=== PATIENT | female | born 1985 | race Caucasian/White ===

== ENCOUNTER 2019-05-26 18:41 | Emergency (ER) | payer MEDICAID ==
[~2019-05-26] VITALS: Ht 160 cm; Wt 65.5 kg
[2019-05-26 18:45] VITALS: Ht 160 cm; Wt 65.5 kg
[2019-05-26] MEDS ORDERED: BUSPAR5 MG PO (18:47)
[2019-05-26 19:20] LABS: APPEARANCE CLEAR (CLEAR); BILIRUBIN NEGATIVE (NEGATIVE); COLOR YELLOW (YELLOW); GLUCOSE NEGATIVE (NEGATIVE); KETONE MODERATE mg/dL (NEGATIVE); NITRITE NEGATIVE (NEGATIVE); PROTEIN NEGATIVE (NEGATIVE); UROBILINOGEN NORMAL (NORMAL)
[2019-05-26 19:21] LABS: BACTERIA MODERATE /hpf (NONE SEEN); EPITHELIAL CELLS 0-5 /hpf (0-5); RED CELLS - URINE OCC /hpf (0-5)
[2019-05-26] MEDS ORDERED: MACROBID100 MG PO (20:20)
[2019-05-26] MEDS ORDERED: ZOFRAN4 MG PO (20:20)
[2019-05-26 20:59] VITALS: BP 105/55
== END 2019-05-26 21:00 | disposition home or self-care (01) ==
LOC: D.ER 18:41
PROVIDERS: Family Medicine
DX: N39.0 Urinary tract infection, site not specified (principal); R11.0 Nausea

== ENCOUNTER 2019-06-29 18:05 | Emergency (ER) | payer MEDICAID ==
[~2019-06-29] VITALS: Ht 160 cm; Wt 65.9 kg
[~2019-06-29 18:05] MED LIST: BUSPAR5 MG PO; MACROBID100 MG PO; ZOFRAN4 MG PO
[2019-06-29 18:14] VITALS: Ht 160 cm; Wt 65.9 kg
[2019-06-29 18:58] LABS: BASOPHILS 0.3 % (0-2); EOSINOPHILS 0.8 % (0-7); HEMATOCRIT 39.6 % (36.0-48.0); HEMOGLOBIN 13.6 g/dL (12-16); IMMATURE GRANULOCYTES 0.2 % (0-5); LYMPHOCYTES 32.8 % (15-50); MCH 30.5 pg (26.0-34.0); MCHC 34.3 g/dL (31.0-37.0); MCV 88.8 fL (80.0-100.0); MONOCYTES 6.1 % (2-11); NEUTROPHILS 59.8 % (40-80); PLATELET COUNT 201 10x3/uL (130-400); RBC 4.46 10x6/uL (4.00-5.40); WBC 5.9 10x3/uL (4.8-10.8)
[2019-06-29 19:03] LABS: APPEARANCE CLEAR (CLEAR); BILIRUBIN NEGATIVE (NEGATIVE); COLOR YELLOW (YELLOW); GLUCOSE NEGATIVE (NEGATIVE); KETONE NEGATIVE (NEGATIVE); NITRITE NEGATIVE (NEGATIVE); PROTEIN NEGATIVE (NEGATIVE); SPECIFIC GRAVITY 1.025 (1.005-1.020); UROBILINOGEN NORMAL (NORMAL)
[2019-06-29 19:13] LABS: ALBUMIN 4.2 g/dL (3.4-5.0); ANION GAP 11.9 mmol/L (8-16); BILIRUBIN - TOTAL 0.66 mg/dL (0.2-1.3); CALCIUM 8.7 mg/dL (8.5-10.1); CARBON DIOXIDE 29.6 mmol/L (21.0-32.0); POTASSIUM - SERUM 3.5 mmol/L (3.5-5.1); PROTEIN - SERUM 7.4 g/dL (6.4-8.2)
[2019-06-29] MEDS ORDERED: ULTRAM50 MG PO (20:27)
[2019-06-29 21:15] VITALS: BP 119/76
== END 2019-06-29 21:12 | disposition home or self-care (01) ==
LOC: D.ER 18:05
PROVIDERS: Family Medicine
DX: R10.9 Unspecified abdominal pain (principal)

== ENCOUNTER → 2019-07-02 14:31 | Outpatient (CLI) | payer MEDICAID ==
[2019-06-29 18:14] VITALS: BMI 25.7
[~2019-07-02 14:31] MED LIST changes: +ULTRAM50 MG PO; +ZOFRAN ODT4 MG/UDTAB PO
[2019-07-27 06:52] VITALS: BMI 24.1
== END | disposition home or self-care (01) ==
LOC: D.LABREF 14:31
PROVIDERS: ATTEND Urology
DX: R31.9 Hematuria, unspecified (principal)

== ENCOUNTER 2019-07-11 04:53 | Emergency (ER) | payer MEDICAID ==
[~2019-07-11] VITALS: Ht 160 cm; Wt 62.3 kg
[~2019-07-11 04:53] MED LIST changes: -ZOFRAN ODT4 MG/UDTAB PO
[2019-07-11 04:59] VITALS: Ht 160 cm; Wt 62.3 kg
[2019-07-11 05:29] LABS: BASOPHILS 0.1 % (0-2); HEMATOCRIT 43.8 % (36.0-48.0); HEMOGLOBIN 14.3 g/dL (12-16); IMMATURE GRANULOCYTES 0.1 % (0-5); LYMPHOCYTES 16.5 % (15-50); MCH 29.9 pg (26.0-34.0); MCHC 32.6 g/dL (31.0-37.0); MCV 91.6 fL (80.0-100.0); MEAN PLATELET VOLUME 11.2 fL (7.4-10.4); MONOCYTES 6.5 % (2-11); NEUTROPHILS 75.8 % (40-80); PLATELET COUNT 209 10x3/uL (130-400); RBC 4.78 10x6/uL (4.00-5.40); WBC 8.4 10x3/uL (4.8-10.8)
[2019-07-11 05:57] LABS: ALBUMIN 3.8 g/dL (3.4-5.0); ALKALINE PHOSPHATASE 53 U/L (46-116); ALT (SGPT) 9 U/L (10-68); BILIRUBIN - TOTAL 0.99 mg/dL (0.2-1.3); CALC OSMOLALITY 277 mosm/kg (275-300); CALCIUM 8.7 mg/dL (8.5-10.1); CARBON DIOXIDE 28.4 mmol/L (21.0-32.0); CHLORIDE - SERUM 106 mmol/L (98-107); CREATININE - SERUM 0.9 mg/dL (0.6-1.3); GLUCOSE 86 mg/dL (74-106); LIPASE 72 U/L (73-393); POTASSIUM - SERUM 5.3 mmol/L (3.5-5.1); PROTEIN - SERUM 7.5 g/dL (6.4-8.2); SODIUM 140 mmol/L (136-145); UREA NITROGEN 13 mg/dL (7-18); eGFR NON AFRICAN AMERICAN 76 mL/min (90-120)
[2019-07-11 06:07] LABS: APPEARANCE CLEAR (CLEAR); BILIRUBIN NEGATIVE (NEGATIVE); COLOR YELLOW (YELLOW); GLUCOSE NEGATIVE (NEGATIVE); KETONE LARGE mg/dL (NEGATIVE); NITRITE NEGATIVE (NEGATIVE); PROTEIN NEGATIVE (NEGATIVE); UROBILINOGEN NORMAL (NORMAL)
[2019-07-11 06:08] LABS: BACTERIA MODERATE /hpf (NEGATIVE); RED CELLS - URINE 0-5 /hpf (0-5)
[2019-07-11 06:09] LABS: HCG URINE NEGATIVE (NEGATIVE)
[2019-07-11 06:11] LABS: UDS - AMPHET NEGATIVE QUAL (NEGATIVE); UDS - BARB NEGATIVE QUAL (NEGATIVE); UDS - BENZO NEGATIVE QUAL (NEGATIVE); UDS - COCAINE NEGATIVE QUAL (NEGATIVE); UDS - OPIATE POSITIVE QUAL (NEGATIVE); UDS - PCP NEGATIVE QUAL (NEGATIVE); UDS - THC NEGATIVE QUAL (NEGATIVE)
[2019-07-11] MEDS ORDERED: MACROBID100 MG PO (06:17)
[2019-07-11] MEDS ORDERED: ZOFRAN ODT4 MG/UDTAB PO (06:19)
[2019-07-11 07:06] VITALS: BP 118/72
== END 2019-07-11 07:07 | disposition home or self-care (01) ==
LOC: D.ER 04:53
PROVIDERS: Family Medicine
DX: R10.13 Epigastric pain (principal); N39.0 Urinary tract infection, site not specified

== ENCOUNTER 2019-07-27 06:15 | Day surgery (SDC) | payer MEDICAID ==
[2019-07-26 08:42] LABS: HEMATOCRIT 40.5 % (36.0-48.0); HEMOGLOBIN 13.2 g/dL (12-16); MCH 30.1 pg (26.0-34.0); MCHC 32.6 g/dL (31.0-37.0); MCV 92.3 fL (80.0-100.0); MEAN PLATELET VOLUME 10.4 fL (7.4-10.4); RBC 4.39 10x6/uL (4.00-5.40); RDW 13.3 % (11.5-14.5); WBC 5.1 10x3/uL (4.8-10.8)
[~2019-07-27] VITALS: Ht 160 cm; Wt 61.7 kg
[~2019-07-27 06:15] MED LIST changes: +ZOFRAN ODT4 MG/UDTAB PO
[2019-07-27 06:52] VITALS: Ht 160 cm; Wt 61.7 kg
--- NOTE | 2019-07-27 10:01 | NUR ---
0950 UP TO BATHROOM WITH ASSISTANCE. STATES FEELS SLIGHTLY DIZZY. VOIDED URINE WITH BRIGHT RED BLOOD NOTED. STATES HAVING BURNING. ASSISTED BACK TO BED. SERVED GRAPE JUICE & FULL LIQUID DIET. Leon GREWAL R.N.
--- NOTE | 2019-07-27 10:23 | OP ---
PATIENT NAME: SONY ISRAEL MEDICAL RECORD: [id number] :87 LOCATION:[facility] ADMISSION DATE: SURGEON: ANDRES VELA MD DATE OF OPERATION: 07/27/2019 SURGEON: Andres Vela MD ANESTHESIA: TIVA by Americo Mariscal CRNA. DIAGNOSIS: Interstitial cystitis. PROCEDURES: Cystoscopy, hydrodistention, intravesical Rimso instillation. FINDINGS: On cystoscopy, no bladder tumors. Diffuse bladder inflammation. Single ureteral orifices bilaterally. CLINICAL HISTORY: This is a 34-year-old female, who is post-hysterectomy. She has ongoing complaints of flank pain, suprapubic pain and vulvar pain. She has dyspareunia also. She also has daytime urinary frequency and nocturia times 2. SHE IS ALLERGIC TO CODEINE AND HYDROCODONE. She was given [employer] adoption manager to the OR. DESCRIPTION OF PROCEDURE: The patient was given IV sedation. She was then placed into the lithotomy position and prepped and draped. A 21-Congolese cystoscope with 30-degree lens was used for visualization. Findings are as outlined above. The bladder was hydrodistended to 600 mL for about 2 minutes. The bladder was then emptied through the cystoscope sheath and the scope was removed. A 16-Congolese red rubber catheter was used to instill 50 mL of Rimso solution into the bladder. The catheter was then removed, leaving the solution in the bladder. The patient will hold the solution for 15 minutes and then void it out. I will see her in followup in 2 weeks' time. TRANSINT:[id number] Voice Confirmation ID: [id number] DOCUMENT ID: [id number] ANDRES VELA MD at 1023 CC: [id number] DICTATION DATE: 07/27/19930 STUDENT COUNSELOR: 07/27/19 1020 REG [facility] [address] [place] [address]
--- NOTE | 2019-07-27 12:42 | NUR ---
1055 DRESSED. AWAKE & ALERT. GIVEN DISCHARGE INFORMATION INCLUDING: MED REC, RTC APPT., [facility] D/C INSTRUCTIONS, & POST CYSTOSCOPY & RIMSO PATIENT INFORMATION. PT VOICED UNDERSTANDING. TO PRIVATE CAR PER WHEELCHAIR. HOME WITH MR. ISRAEL. Leon GREWAL R.N.
== END 2019-07-27 10:55 | disposition home or self-care (01) ==
LOC: D.OPS 06:15 → D.PAN 07:30 → D.OPS 08:25
PROVIDERS: Anesthesiology; ATTEND Urology
DX: N30.10 Interstitial cystitis (chronic) without hematuria (principal)

== ENCOUNTER → 2019-08-17 13:55 | Outpatient (CLI) | payer MEDICAID ==
[2019-07-27 06:52] VITALS: BMI 24.1
== END | disposition home or self-care (01) ==
LOC: D.LABREF 13:55
PROVIDERS: ATTEND Urology
DX: D70.8 Other neutropenia (principal); R31.9 Hematuria, unspecified

== ENCOUNTER → 2019-08-24 09:17 | Outpatient (CLI) | payer MEDICAID ==
[2019-07-27 06:52] VITALS: BMI 24.1
[2019-08-24 11:56] LABS: APPEARANCE HAZY (CLEAR); BILIRUBIN NEGATIVE (NEGATIVE); COLOR YELLOW (YELLOW); GLUCOSE NEGATIVE (NEGATIVE); KETONE NEGATIVE (NEGATIVE); NITRITE NEGATIVE (NEGATIVE); PROTEIN NEGATIVE (NEGATIVE); UROBILINOGEN NORMAL (NORMAL)
[2019-08-24 11:57] LABS: AMORPHOUS SEDIMENT >1+ /lpf (NONE SEEN); BACTERIA MODERATE /hpf (NEGATIVE); EPITHELIAL CELLS 0-5 /hpf (0-5); GRANULAR CAST RARE /lpf (NONE SEEN); MUCUS <1+ /lpf (NONE SEEN); RED CELLS - URINE OCC /hpf (0-5); WHITE CELLS - URINE OCC /hpf (NEGATIVE)
== END | disposition home or self-care (01) ==
LOC: D.LABREF 09:17
PROVIDERS: ATTEND Urology
DX: R82.90 Unspecified abnormal findings in urine (principal); R31.9 Hematuria, unspecified

== ENCOUNTER → 2019-09-14 12:39 | Outpatient (CLI) | payer MEDICAID ==
[2019-07-27 06:52] VITALS: BMI 24.1
== END | disposition home or self-care (01) ==
LOC: D.LABREF 12:39
PROVIDERS: ATTEND Urology
DX: R82.90 Unspecified abnormal findings in urine (principal); R31.9 Hematuria, unspecified

== ENCOUNTER 2019-10-20 20:02 | Emergency (ER) | payer MEDICAID ==
[~2019-10-20] VITALS: Ht 160 cm; Wt 61.4 kg
[2019-10-20 20:20] VITALS: Ht 160 cm; Wt 61.4 kg
[2019-10-20] MEDS ORDERED: ALBUTEROL SULF8.5 GM INH (20:56)
[2019-10-20] MEDS ORDERED: STERAPRED DS 1010 MG PO (20:56)
[2019-10-20] MEDS ORDERED: MUCINEX DM ER1 EAC1 PO (20:56)
[2019-10-20 21:09] VITALS: BP 127/86
== END 2019-10-20 21:09 | disposition home or self-care (01) ==
LOC: D.ER 20:02
DX: R05 Cough (principal); J06.9 Acute upper respiratory infection, unspecified

== ENCOUNTER 2020-01-03 19:27 | Emergency (ER) | payer MEDICAID ==
[~2020-01-03] VITALS: Ht 160 cm; Wt 63.2 kg
[~2020-01-03 19:27] MED LIST changes: +ALBUTEROL SULF8.5 GM INH; +ATARAX 25 MG TA25 MG PO; +MEDROL DOSE PACK4 MG PO; +MUCINEX DM ER1 EAC1 PO; +STERAPRED DS 1010 MG PO
[2020-01-03 19:48] VITALS: Ht 160 cm; Wt 63.2 kg
[2020-01-03 20:32] LABS: BASOPHILS 0.3 % (0-2); EOSINOPHILS 0.8 % (0-7); HEMATOCRIT 40.6 % (36.0-48.0); IMMATURE GRANULOCYTES 0.3 % (0-5); LYMPHOCYTES 29.4 % (15-50); MCH 30.3 pg (26.0-34.0); MCV 94.6 fL (80.0-100.0); MEAN PLATELET VOLUME 10.6 fL (7.4-10.4); MONOCYTES 6.8 % (2-11); NEUTROPHILS 62.4 % (40-80); PLATELET COUNT 215 10x3/uL (130-400); RBC 4.29 10x6/uL (4.00-5.40); RDW 13.4 % (11.5-14.5); WBC 7.4 10x3/uL (4.8-10.8)
[2020-01-03 20:40] LABS: APTT 23.8 SECONDS (22.8-39.4); INR 1.04 (0.85-1.17); PROTIME 13.6 SECONDS (11.6-15.0)
[2020-01-03 20:42] LABS: CALC OSMOLALITY 274 mosm/kg (275-300); CALCIUM 8.6 mg/dL (8.5-10.1); CARBON DIOXIDE 26.3 mmol/L (21.0-32.0); CHLORIDE - SERUM 105 mmol/L (98-107); CREATININE - SERUM 0.9 mg/dL (0.6-1.3); GLUCOSE 88 mg/dL (74-106); POTASSIUM - SERUM 3.4 mmol/L (3.5-5.1); SODIUM 139 mmol/L (136-145); UREA NITROGEN 8 mg/dL (7-18); eGFR NON AFRICAN AMERICAN 76 mL/min (90-120)
[2020-01-03 20:57] LABS: ALBUMIN 3.9 g/dL (3.4-5.0); ALKALINE PHOSPHATASE 55 U/L (30-120); ALT (SGPT) 12 U/L (10-68); BILIRUBIN - TOTAL 0.45 mg/dL (0.2-1.3); CKMB 0.5 U/L (0.0-3.6); CREATINE KINASE 85 UL (21-215); TROPONIN-I < 0.017 ng/mL (0.000-0.060)
[2020-01-03 22:08] VITALS: BP 142/85
== END 2020-01-03 22:09 | disposition home or self-care (01) ==
LOC: D.ER 19:27
PROVIDERS: Family Medicine
DX: F41.9 Anxiety disorder, unspecified (principal); R07.9 Chest pain, unspecified; R42 Dizziness and giddiness

== ENCOUNTER 2020-02-07 22:04 | Emergency (ER) | payer MEDICAID ==
[~2020-02-07] VITALS: Ht 160 cm; Wt 62.1 kg
[2020-02-07 23:01] VITALS: Ht 160 cm; Wt 62.1 kg
[2020-02-07 23:43] LABS: BILIRUBIN NEGATIVE (NEGATIVE); GLUCOSE NEGATIVE (NEGATIVE); KETONE NEGATIVE (NEGATIVE); NITRITE NEGATIVE (NEGATIVE); SPECIFIC GRAVITY 1.015 (1.005-1.020); UROBILINOGEN NORMAL (NORMAL)
[2020-02-07 23:46] LABS: BACTERIA MODERATE /hpf (NEGATIVE); EPITHELIAL CELLS 0-5 /hpf (0-5); RED CELLS - URINE 0-5 /hpf (0-5)
[2020-02-08] MEDS ORDERED: MACROBID100 MG PO ×2 (01:16→01:17)
[2020-02-08 01:39] VITALS: BP 122/74
== END 2020-02-08 01:39 | disposition home or self-care (01) ==
LOC: D.ER 22:04
PROVIDERS: Family Medicine
DX: N39.0 Urinary tract infection, site not specified (principal); D27.1 Benign neoplasm of left ovary; R10.9 Unspecified abdominal pain; Z87.442 Personal history of urinary calculi

== ENCOUNTER 2021-03-12 19:45 | Emergency (ER) | payer BC ==
[~2021-03-12] VITALS: Ht 160 cm; Wt 54.4 kg
[2021-03-12 20:06] VITALS: Ht 160 cm; Wt 54.4 kg
[2021-03-12 20:31] LABS: BASOPHILS 0.4 % (0-2); EOSINOPHILS 0.6 % (0-7); HEMATOCRIT 40.6 % (36.0-48.0); HEMOGLOBIN 13.4 g/dL (12-16); LYMPHOCYTES 21.6 % (15-50); MCH 30.1 pg (26.0-34.0); MCV 91.3 fL (80.0-100.0); MEAN PLATELET VOLUME 7.9 fL (7.4-10.4); MONOCYTES 5.6 % (2-11); NEUTROPHILS 71.8 % (40-80); RBC 4.45 10x6/uL (4.00-5.40); RDW 13.3 % (11.5-14.5); WBC 8.9 10x3/uL (4.8-10.8)
[2021-03-12 20:39] LABS: PLATELET COUNT 259 10x3/uL (130-400)
[2021-03-12 20:42] LABS: ANION GAP 12.9 mmol/L (8-16); CALCIUM 8.9 mg/dL (8.5-10.1); POTASSIUM - SERUM 3.9 mmol/L (3.5-5.1)
[2021-03-12 20:50] LABS: ALBUMIN 4.1 g/dL (3.4-5.0); BILIRUBIN - TOTAL 0.49 mg/dL (0.2-1.3); PROTEIN - SERUM 7.3 g/dL (6.4-8.2)
[2021-03-12] MEDS ORDERED: STERAPRED DS 1210 MG PO (21:07)
[2021-03-12] MEDS ORDERED: PERCOCET 5-3251 TAB PO (21:07)
[2021-03-12 21:11] LABS: BILIRUBIN NEGATIVE (NEGATIVE); KETONE NEGATIVE (NEGATIVE); NITRITE NEGATIVE (NEGATIVE); UROBILINOGEN NORMAL mg/dL (< 2)
[2021-03-12 21:16] LABS: HCG URINE NEGATIVE (NEGATIVE)
[2021-03-12 23:19] VITALS: BP 125/81
== END 2021-03-12 23:19 | disposition home or self-care (01) ==
LOC: D.ER 19:45
PROVIDERS: Emergency Medicine
DX: K50.90 Crohn's disease, unspecified, without complications (principal); R10.84 Generalized abdominal pain